=== PATIENT | female | born 1935 | race Caucasian/White ===

== ENCOUNTER 2016-09-03 21:24 | Emergency (ER) | payer MEDICARE, OTHER ==
[~2016-09-03 21:24] MED LIST: ALPRAZOLAM0.25 M3 PO; AMARYL4 M1 PO; AMARYL4 MG; AMLODIPINE BES2.5 M1 PO; ASPIR 8181 MG; ASPIRIN81 M1 PO; CALCIUM600 M1 PO; CARVEDILOL12.5 M1 PO; CARVEDILOL6.25 MG PO; CITALOPRAM HBR20 M1 PO; DONEPEZIL HCL10 M2 PO; FISH OIL CONC 11 CAP; GLUCOPHAGE XR500 MG; LANTUS100 UNITS/ SC; LIPITOR40 M1 PO; LISINOPRIL20 MG; LISINOPRIL30 M1 PO; LOMOTIL 2.5-0.1 EACH PO; MACROBID 100 M100 M1 PO; METFORMIN HCL500 M2 PO; METFORMIN HCL500 M4 PO; NAMENDA XR28 M1 PO; NOVOLOG100 UNITS/ SC; NYSTATIN15 G1 TOP; TYLENOL EXTRA500 M1 PO; TYLENOL325 M2 PO; ULTRAM50 M1 PO; VITAMIN; VITAMIN D1000 UNI2 PO
[2016-09-03 22:25] LABS: BASO % 0.5 % (0-2); EOS % 1.7 % (0-7); EOSINOPHIL ABSOLUTE COUNT 0.1 tho/cmm (0.0-0.7); HCT-HEMATOCRIT 34.4 % (34.0-49.0); HGB-HEMOGLOBIN 11.3 gm/dl (12.0-15.5); IMMATURE GRANULOCYTES ABSOLUTE 0.02 tho/cmm (0-0.03); IMMATURE GRANULOCYTES PERCENT 0.3 % (0-0.3); LYMPH % 40.2 % (20-45); MCH (MEAN CORPUSCULAR HGB) 30.7 pg (28.0-32.0); MCHC MEAN CORPUSCULAR HGB CONC 32.8 % (32.0-36.0); MCV (MEAN CELL VOLUME) 93.5 fl (82.0-96.0); MEAN PLATELET VOLUME 10.4 cmc (9.4-12.4); MONO % 7.4 % (0-12); MONOCYTE ABSOLUTE COUNT 0.6 tho/cmm (0.0-1.2); NEUTROPHIL ABSOLUTE COUNT 3.8 tho/cmm (1.6-8.0); NEUTROPHIL-AUTOMATED 3.8 tho/cmm (1.6-8.0); NEUTROPHILS % 49.9 % (40-80); PLATELET COUNT 142 tho/cmm (150-450); RED BLOOD COUNT 3.68 mil/cmm (4.00-5.20); RED CELL DISTRIBUTION WIDTH 13.1 % (12.4-16.4); WHITE BLOOD COUNT 7.6 tho/cmm (4.0-10.0)
[2016-09-03 22:32] LABS: URINE APPEARANCE HAZY; URINE COLOR YELLOW; URINE LEUKOCYTE ESTERASE POSITIVE (NEG); URINE SPECIFIC GRAVITY 1.005 (1.003-1.030)
[2016-09-03 22:33] LABS: URINE BILIRUBIN NEGATIVE (NEG); URINE BLOOD NEGATIVE (NEG); URINE GLUCOSE (UA) NEGATIVE (NEG); URINE KETONE NEGATIVE (NEG); URINE NITRITE NEGATIVE (NEG); URINE PROTEIN NEGATIVE (NEG)
[2016-09-03 22:34] LABS: ANION GAP 11 mmol/L (0-20); BLOOD UREA NITROGEN 31 mg/dl (6-24); CALCIUM 8.8 mg/dl (8.5-10.5); CARBON DIOXIDE-VENOUS 28 mmol/L (22-32); CHLORIDE 106 mmol/l (96-110); CREATININE 1.57 mg/dl (0.50-1.10); GLUCOSE 119 mg/dL (70-110); POTASSIUM 4.2 mmol/L (3.7-5.1); SODIUM 141 mmol/L (135-145); eGFR VALUE FOR BLACK 35 mL/Min
[2016-09-03 22:46] LABS: URINE EPITHELIAL CELLS 0-1 /[HPF] (0-10); URINE RBC 0-1 /[HPF] (0-5); URINE WBC 15-20 /[HPF] (0-5)
[2016-09-03 22:47] LABS: URINE BACTERIA 4+
[2016-09-03] MEDS ORDERED: BACTRIM DS TAB1 EAC2 PO (22:57)
== END 2016-09-03 23:15 ==
LOC: EDMED 21:24
PROVIDERS: Emergency Medicine
DX: R55 Syncope and collapse (principal); N39.0 Urinary tract infection, site not specified; N28.9 Disorder of kidney and ureter, unspecified; E11.9 Type 2 diabetes mellitus without complications
CPT/HCPCS: P9612

== ENCOUNTER 2016-10-05 10:57 | Inpatient (IN) | payer MEDICARE, OTHER ==
[~2016-10-05 10:57] MED LIST changes: +BACTRIM DS TAB1 EAC2 PO
[2016-10-05 11:11] LABS: BASO % 0.1 % (0-2); HCT-HEMATOCRIT 30.1 % (34.0-49.0); IMMATURE GRANULOCYTES ABSOLUTE 0.07 tho/cmm (0-0.03); IMMATURE GRANULOCYTES PERCENT 0.6 % (0-0.3); LYMPH ABSOLUTE COUNT 1.4 tho/cmm (0.8-4.5); MCH (MEAN CORPUSCULAR HGB) 30.3 pg (28.0-32.0); MCHC MEAN CORPUSCULAR HGB CONC 33.2 % (32.0-36.0); MCV (MEAN CELL VOLUME) 91.2 fl (82.0-96.0); MEAN PLATELET VOLUME 9.3 cmc (9.4-12.4); MONO % 6.7 % (0-12); MONOCYTE ABSOLUTE COUNT 0.8 tho/cmm (0.0-1.2); NEUTROPHIL ABSOLUTE COUNT 10.2 tho/cmm (1.6-8.0); NEUTROPHIL-AUTOMATED 10.2 tho/cmm (1.6-8.0); NEUTROPHILS % 81.6 % (40-80); PLATELET COUNT 232 tho/cmm (150-450); RED CELL DISTRIBUTION WIDTH 13.9 % (12.4-16.4); WHITE BLOOD COUNT 12.5 tho/cmm (4.0-10.0)
[2016-10-05 11:12] LABS: CARBON DIOXIDE-VENOUS 25 mmol/L (21-33); CREATININE 1.56 mg/dl (0.67-1.17); GLUCOSE 137 mg/dl (65-120); POTASSIUM 4.3 mmol/L (3.5-5.3); SODIUM 137 mmol/L (135-146); eGFR VALUE FOR BLACK 35 mL/Min
[2016-10-05 11:16] LABS: INR 1.2 INR (0.9-1.1); PROTHROMBIN TIME 13.5 SECONDS (9.0-13.6)
[2016-10-05 11:34] LABS: ALB/GLOB RATIO 0.5 (0.8-2.0); ALBUMIN 2.5 g/dl (3.5-5.0); ALKALINE PHOSPHATASE 62 U/L (33-138); ALT/SGPT 27 U/L (12-78); AST/SGOT 31 U/L (10-40); BILIRUBIN,TOTAL 0.6 mg/dl (0-1.5); BLOOD UREA NITROGEN 36 mg/dl (6-24); CALCIUM 8.8 mg/dl (8.5-10.5); CHLORIDE 106 mmol/l (96-110)
[2016-10-05 11:36] LABS: ANION GAP 10 mmol/L (0-20)
[2016-10-05 11:39] LABS: ESR-ERYTHROCYTE SED RATE 74 mm/hr (0-30)
[2016-10-05 12:01] LABS: URINE APPEARANCE CLEAR; URINE BILIRUBIN NEGATIVE (NEG); URINE BLOOD NEGATIVE (NEG); URINE COLOR YELLOW; URINE GLUCOSE (UA) NEGATIVE (NEG); URINE KETONE SMALL (NEG); URINE LEUKOCYTE ESTERASE POSITIVE (NEG); URINE NITRITE NEGATIVE (NEG); URINE PROTEIN MODERATE (NEG); URINE SPECIFIC GRAVITY 1.015 (1.003-1.030)
[2016-10-05 12:12] LABS: URINE RBC 0-1 /[HPF] (0-5)
[2016-10-05 12:13] LABS: URINE MUCUS 2+
[2016-10-05] MEDS ORDERED: LIPITOR20 M1 PO (13:04)
[2016-10-05] MEDS ORDERED: NAMENDA XR PO (13:05)
[2016-10-05] MEDS ORDERED: ARICEPT10 M2 PO (13:06)
[2016-10-05] MEDS ORDERED: NOVOLOG100 UNITS/ (13:11)
[2016-10-05] MEDS ORDERED: LEVAQUIN750 M1 PO (13:12)
[2016-10-06 05:30] LABS: ANION GAP 14 mmol/L (0-20); BLOOD UREA NITROGEN 25 mg/dl (6-24); CALCIUM 8.7 mg/dl (8.5-10.5); CARBON DIOXIDE-VENOUS 23 mmol/L (22-32); CHLORIDE 108 mmol/l (96-110); CHOLESTEROL 80 mg/dl (120-200); CREATININE 1.17 mg/dl (0.50-1.10); GLUCOSE 123 mg/dL (70-110); HDL CHOLESTEROL 44 mg/dl (40-60); LDL CHOLESTEROL 21 mg/dl (0-99); LIPASE 257 U/L (73-393); POTASSIUM 4.1 mmol/L (3.7-5.1); SODIUM 141 mmol/L (135-145); TRIGLYCERIDES 79 mg/dl (<149); VLDL 16 mg/dl (0-30); eGFR VALUE FOR BLACK 50 mL/Min
[2016-10-06 10:23] LABS: BASO % 0.1 % (0-2); EOS % 0.2 % (0-7); HCT-HEMATOCRIT 29.6 % (34.0-49.0); HGB-HEMOGLOBIN 9.8 gm/dl (12.0-15.5); IMMATURE GRANULOCYTES ABSOLUTE 0.07 tho/cmm (0-0.03); IMMATURE GRANULOCYTES PERCENT 0.6 % (0-0.3); LYMPH % 13.7 % (20-45); LYMPH ABSOLUTE COUNT 1.5 tho/cmm (0.8-4.5); MCH (MEAN CORPUSCULAR HGB) 30.1 pg (28.0-32.0); MCHC MEAN CORPUSCULAR HGB CONC 33.1 % (32.0-36.0); MCV (MEAN CELL VOLUME) 90.8 fl (82.0-96.0); MEAN PLATELET VOLUME 9.1 cmc (9.4-12.4); MONO % 6.7 % (0-12); MONOCYTE ABSOLUTE COUNT 0.7 tho/cmm (0.0-1.2); NEUTROPHIL ABSOLUTE COUNT 8.7 tho/cmm (1.6-8.0); NEUTROPHIL-AUTOMATED 8.7 tho/cmm (1.6-8.0); NEUTROPHILS % 78.7 % (40-80); PLATELET COUNT 267 tho/cmm (150-450); RED BLOOD COUNT 3.26 mil/cmm (4.00-5.20); RED CELL DISTRIBUTION WIDTH 13.6 % (12.4-16.4); WHITE BLOOD COUNT 11.1 tho/cmm (4.0-10.0)
--- NOTE | 2016-10-06 18:56 | NUR ---
VIRTUAL CARE NOTE: PT. IN BED ATTEMPTING TO EAT SUPPER. ATTEMPTED TO SEE IF PT. WOULD UNDERSTAND HOW TO CALL FOR THE NURSE, CONFUSION NOTED. WILL CONTINUE TO MONITOR.
[2016-10-07 04:53] LABS: HGB-HEMOGLOBIN 10.1 gm/dl (12.0-15.5); PLATELET COUNT 265 tho/cmm (150-450)
--- NOTE | 2016-10-07 14:27 | NUR ---
VIRTUAL CARE NOTE: CHECKED IN ON PT AT THIS TIME. SHE IS CONFUSED-THIS IS HER BASELINE MENTATION DUE TO DEMENTIA HISTORY. NO FAMILY PRESENT. IS RESTING IN BED. WILL CONTINUE TO MONITOR. ELECTRONIC CHART REVIEWED.
== END 2016-10-08 13:30 | disposition other institution (70) | DRG 178 ==
LOC: EDMED 10:57 → EMR2 13:43 → 5WD 15:04
PROVIDERS: Emergency Medicine; ADMIT Internal Medicine
PROC: 05HB33Z Insertion of Infusion Device into Right Basilic Vein, Percutaneous Approach (ICD-10-PCS; principal; 2016-10-06)
DX: J15.6 Pneumonia due to other Gram-negative bacteria (principal); N18.4 Chronic kidney disease, stage 4 (severe); Z66 Do not resuscitate; F03.90 Unspecified dementia, unspecified severity, without behavioral disturbance, psychotic disturbance, mood disturbance, and anxiety; E11.22 Type 2 diabetes mellitus with diabetic chronic kidney disease; N18.3 Chronic kidney disease, stage 3 (moderate); I12.9 Hypertensive chronic kidney disease with stage 1 through stage 4 chronic kidney disease, or unspecified chronic kidney disease; E78.5 Hyperlipidemia, unspecified; D64.9 Anemia, unspecified; Z90.710 Acquired absence of both cervix and uterus; Z79.82 Long term (current) use of aspirin
CPT/HCPCS: C1751; J0696; J1650; J1815; J1956; J2185; J3370; J7030; P9612